=== PATIENT | female | born 1985 | race African-American/Black ===

== ENCOUNTER 2020-10-02 23:57 | Emergency (ER) | payer MEDICAID, OTHER ==
[2020-10-03] MEDS ORDERED: Ibuprofen 200 MG TAB ONE (01:28)
[2020-10-03] MEDS ORDERED: HYDROcodone/Acetaminophen 5/325 mg Tablet ONE (01:29)
== END 2020-10-03 01:40 | disposition home or self-care (01) ==
LOC: CSHERS 23:57
DX: K03.81 Cracked tooth (principal)
CPT/HCPCS: 99282

== ENCOUNTER 2020-11-01 21:06 | Emergency (ER) | payer OTHER ==
[2020-11-01] MEDS ORDERED: Ketorolac Tromethamine 15 MG/ML VIAL ONE (21:38)
== END 2020-11-01 21:47 | disposition home or self-care (01) ==
LOC: CSHERS 21:06
DX: K03.81 Cracked tooth (principal)
CPT/HCPCS: 96372; 99282; J1885

== ENCOUNTER 2021-02-16 12:42 | Emergency (ER) | payer OTHER | END 2021-02-16 13:57 | disposition left against medical advice (07) | LOC: CSHERS 12:42 | DX: Z53.21 Procedure and treatment not carried out due to patient leaving prior to being seen by health care provider (principal) ==

== ENCOUNTER 2022-06-12 23:52 | Emergency (ER) | payer OTHER ==
[2022-06-13] MEDS ORDERED: Ondansetron PF 4 MG/2 ML Vial ONE (00:38)
[2022-06-13] MEDS ORDERED: Ketorolac Tromethamine 30 MG/ML VIAL ONE (00:50)
[2022-06-13 01:29] LABS: SARS-CoV-2 NAA Rapid Test Not Detected (NotDetected)
== END 2022-06-13 02:34 | disposition home or self-care (01) ==
LOC: CSHERS 23:52
DX: R51.9 Headache, unspecified (principal); M79.10 Myalgia, unspecified site; Z20.822 Contact with and (suspected) exposure to COVID-19
CPT/HCPCS: 96361; 96374; 96375; J1885; J2405

== ENCOUNTER 2022-07-03 19:08 | Emergency (ER) | payer OTHER ==
[2022-07-03] MEDS ORDERED: predniSONE 20 MG TAB ONE (20:18)
[2022-07-03] MEDS ORDERED: Ondansetron ODT 4 MG TAB ONE (20:19)
[2022-07-03] MEDS ORDERED: Famotidine 20 MG TAB ONE (20:20)
== END 2022-07-03 21:43 | disposition home or self-care (01) ==
LOC: CSHERS 19:08
DX: R11.2 Nausea with vomiting, unspecified (principal)
CPT/HCPCS: 99283; J7512; Q0162